=== PATIENT | male | born 1945 | race Hispanic/Latino ===

== ENCOUNTER 2016-12-11 11:16 | Outpatient (CLI) | payer MEDICARE, OTHER ==
--- NOTE | 2016-12-11 12:01 | Ultrasound Report ---
Renal ultrasound: Elevated creatinine level. The right renal length is 11 cm and the left renal length is 11.2 cm. The parenchymal thickness is preserved bilaterally. The overall echogenic pattern of the kidneys is unremarkable. No renal mass, hydronephrosis, or renal stone identified. The patient's urinary bladder was removed in 2017. Impression: Unremarkable kidneys.
== END 2016-12-11 11:17 | disposition home or self-care (01) ==
LOC: SPVWC 11:16
PROVIDERS: ATTEND Internal Medicine
DX: R79.89 Other specified abnormal findings of blood chemistry (principal); Z90.6 Acquired absence of other parts of urinary tract
CPT/HCPCS: 76770